=== PATIENT | female | born 1970 ===

== ENCOUNTER 2019-01-12 13:02 | Emergency (ER) | payer OTHER ==
[2019-01-12 13:16] VITALS: RESP 16; TEMP 98.6
--- NOTE | 2019-01-12 14:55 | ED PDOC ---
HPI: Female Pain Time Seen by Provider: 01/12/19 13:16 Chief Complaint (Nursing): Female Genitourinary Chief Complaint (Provider): Female Genitourinary History Per: Patient History/Exam Limitations: no limitations Onset/Duration Of Symptoms: Days (x 2) Current Symptoms Are (Timing): Still Present Quality Of Discomfort: "Pain" Associated Symptoms: Urinary Symptoms (dysuria and frequency) Additional Complaint(s): 48 year old female with a history of UTI presents to the ED for evaluation of dysuria, frequency and lower abdominal pain for the last day. Patient reports around 12pm yesterday, she developed symptoms and took Tylenol. Her last dose was at 1am however symptoms persist, prompting visit. Otherwise: (-) fever, (-) chills, (-) back pain,(-) hematuria, (-) abnormal vaginal bleeding/ discharge (- ) N/V/D. PMD: none provided Abnormal Vaginal Bleeding: No Last Menstral Period: 12/23/2018 : 3 Past Medical History Reviewed: Historical Data, Nursing Documentation, Vital Signs Vital Signs: Last Vital Signs Temp 98.6 F 01/12/19 13:13 Pulse 80 01/12/19 13:13 Resp 16 01/12/19 13:13 BP 131/83 01/12/19 13:13 Pulse Ox 99 01/12/19 13:13 - Medical History PMH: No Chronic Diseases - Surgical History Surgical History: (x 3) Other surgeries: varicose vein removal - Family History Family History: States: Unknown Family Hx - Social History Current smoker - smoking cessation education provided: No Alcohol: None Drugs: Denies - Home Medications Home Medications: Ambulatory Orders Medication Instructions Recorded Nitrofurantoin Macrocrystals 100 mg PO BID #14 cap 01/12/19 [Macrobid] Phenazopyridine HCl [Pyridium] 200 mg PO BID PRN #4 tablet 01/12/19 - Allergies Allergies/Adverse Reactions: Allergies Allergy/AdvReac Type Severity Reaction Status Date / Time No Known Allergies Allergy Verified 01/12/19 13:13 Review of Systems ROS Statement: Except As Marked, All Systems Reviewed And Found Negative Constitutional: Negative for: Fever, Chills Gastrointestinal: Positive for: Abdominal Pain. Negative for: Nausea, Vomiting, Diarrhea Genitourinary Female: Positive for: Dysuria, Frequency. Negative for: Incontinence, Hematuria, Vaginal Discharge, Vaginal Bleeding Physical Exam - Reviewed Nursing Documentation Reviewed: Yes Vital Signs Reviewed: Yes - Physical Exam Comments: GENERAL APPEARANCE: Patient is awake, alert, oriented x 3, in no acute distress. SKIN: Warm, dry; (-) cyanosis. EYES: (-) conjunctival injection ENMT: Mucous membranes moist. Airway patent: (-) stridor. NECK: Supple, FROM CHEST AND RESPIRATORY: (-) wheezing; (-) rales, (-) rhonchi; breath sounds equal bilaterally. Respirations even and nonlabored. HEART AND CARDIOVASCULAR: (-) irregularity ABDOMEN AND GI: Soft; (+) suprapubic tenderness (-) distention (-) CVA tenderness (-) guarding. BACK: (-) midline tenderness (-) paralumbar tenderness EXTREMITIES: (-) deformity NEURO AND PSYCH: Mental status as above; (-) focal findings. Gait: steady. Speech: clear. (-) facial asymmetry - Laboratory Results Urine POC: Negative - ECG O2 Sat by Pulse Oximetry: 99 (RA) Pulse Ox Interpretation: Normal Medical Decision Making Medical Decision Makin:17 Impression: UTI and dysuria Initial Plan: --Urine dip --Urine cx --UA --Pyridium 200 mg PO 1430 Patient resting comfortably, pending U/A results. 1615 Per lab, specimen was mislabeled by lab support tech and are requesting a new urine sample. Disposition pending U/A results 1650 U/A with hematuria and bacteria. Macrobid 100mg PO ordered for UTI. Patient continues to deny flank pain, fever, N/V/D, back pain. On exam, patient remains AAOx3, in no acute distress. Vitals stable. Lab/Diagnostic results d/w the patient in great detail. Diagnosis of hematuria, UTI d/w the patient. Based on history, exam and diagnostic results, plan will be for outpatient follow up with PMD. Patient instructed to follow-up with pmd / referral provided / the clinic in 1- 2 days without fail. Advised to take medication as prescribed. Return to the emergency room at any time for any new or worsening symptoms. Patient states she fully agrees with and understands discharge instructions. States that she agrees with the plan and disposition. Verbalized and repeated discharge instructions and plan. I have given the patient opportunity to ask any additional questions. Scribe Attestation: Documented by Shawanda Nur acting as a scribe for Marianne Yip PA-C, MD Scribe Attestation: All medical record entries made by the Scribe were at my direction and personally dictated by me. I have reviewed the chart and agree that the record accurately reflects my personal performance of the history, physical exam, medical decision making, and the department course for this patient. I have also personally directed, reviewed, and agree with the discharge instructions and disposition. Disposition - Clinical Impression Clinical Impression: Urinary tract infection, Dysuria, Hematuria, Urinary frequency - Patient ED Disposition Is Patient to be Admitted: No Counseled Patient/Family Regarding: Studies Performed, Diagnosis, Need For Followup, Rx Given - Disposition [facility] [Outside] Disposition: Routine/Home Disposition Time: 16:55 Condition: STABLE Additional Instructions: La atencin mdica de emergencia que recibi hoy se dirigi a troy sntomas ag udos. Si le recetaron algn medicamento, llnelo y tmelo segn las indicaciones. Los sntomas pueden tardar varios hanna en resolverse. Regrese al Departamento de Emergencias si troy sntomas empeoran, no mejoran o si tiene otros problemas. Comunquese con powell mdico dentro de 2 hanna para chandler nueva evaluacin y ruben un seguimiento o llame a lavinia de los mdicos / clnicas a los que price sido referido y que figuran en el formulario de Informacin de visita al paciente que se incluye en powell paquete de dinora. Lleve todos los documentos que le entregaron al momento del dinora junto con todos los medicamentos que est tomando para powell visita de seguimiento. Nuestro tratamiento no puede reemplazar la atencin mdica continua por parte de un proveedor de atencin primaria (PCP) fuera del departamento de emergencias. Prescriptions: Nitrofurantoin Macrocrystals [Macrobid] 100 mg PO BID #14 cap Phenazopyridine HCl [Pyridium] 200 mg PO BID PRN #4 tablet PRN Reason: urinary discomfort Instructions: Urinary Tract Infections in Adults, Dysuria, Adult (DC), Blood in the Urine (Hematuria), Adult (DC) Forms: [employer] (Lux[place]ish) Print Language: GREENLANDIC - POA Present On Arrival: None Results - Lab Results Lab Results: 01/12/19 16:26 Urine Color Yellow Urine Clarity Cloudy Urine pH 7.0 Ur Specific Deridder 1.015 Urine Protein 100 Urine Glucose (UA) Neg Urine Ketones 80 Urine Blood Large Urine Nitrate Negative Urine Bilirubin Negative Urine Urobilinogen 2.0 H Ur Leukocyte Esterase Neg Urine RBC (Auto) 338 H Urine Microscopic WBC 5 Ur Squamous Epith Cells 2 Urine Bacteria Few H
[2019-01-12 16:41] LABS: SQUAMOUS EPITHIAL 2 /hpf (0-5); URINE BACTERIA FEW (<OCC); URINE BILIRUBIN NEGATIVE (NEGATIVE); URINE CLARITY CLOUDY (Clear); URINE GLUCOSE (UA) NEG (NEGATIVE); URINE LEUKOCYTE ESTERASE NEG Leu/uL (Negative); URINE PROTEIN 100 mg/dL (NEGATIVE)
[2019-01-12 16:43] LABS: URINE COLOR YELLOW (YELLOW)
[2019-01-12 16:46] LABS: URINE BLOOD LARGE (NEGATIVE)
[2019-01-12 17:09] VITALS: BP 128/82; PULSE 72
[2019-01-12 19:39] VITALS: O2SAT 99
== END 2019-01-12 17:09 | disposition home or self-care (01) ==
LOC: EDBD 13:02 → H.ER 13:02
DX: N39.0 Urinary tract infection, site not specified (principal); R30.0 Dysuria; R31.9 Hematuria, unspecified; R35.0 Frequency of micturition